=== PATIENT | female | born 1940 | race American Indian/Alaskan Native ===

== ENCOUNTER 2016-09-02 18:04 | Emergency (ER) | payer MEDICARE ==
[2016-09-02 19:12] VITALS: BP 154/61
--- NOTE | 2016-09-07 19:26 | ED Elopement Review ---
ED Pt Elopement review - Call Back decision Pt Call Back Decision: Pt to F/U with PMD
== END 2016-09-02 23:00 | disposition left against medical advice (07) ==
LOC: ED 18:04
DX: R21 Rash and other nonspecific skin eruption (principal); E11.9 Type 2 diabetes mellitus without complications; K21.9 Gastro-esophageal reflux disease without esophagitis; I10 Essential (primary) hypertension; Z88.6 Allergy status to analgesic agent; Z88.2 Allergy status to sulfonamides; Z53.21 Procedure and treatment not carried out due to patient leaving prior to being seen by health care provider

== ENCOUNTER 2017-02-15 21:20 | Inpatient (IN) | payer MEDICARE ==
[2017-02-15] MEDS ORDERED: NARCAN 2 MG/2 ML IV ONE (21:40)
[2017-02-15] MEDS ORDERED: APRESOLINE IV ONE (21:41)
--- NOTE | 2017-02-15 21:46 | Emergency Department Report ---
HPI - General Chief Complaint: Weakness Time Seen by Provider: 02/15/17 21:28 - HPI HPI: This is a 76 year-old female presents to the emergency department from home with complaint of fatigue, weakness and potentially altered mental status. The patient has a history of a fall about one month ago that caused her significant hip pain. She was having increased pain last night and went to [facility] where she was found not to have any type of significant injury and was discharged home with some pain medication. She got a dose of it last night and another one this morning. Since that time the patient was sleeping all day and even after that, when she woke up, she still has been lethargic. She is able to answer questions and is alert/ oriented but is very slow to answer questions and therefore is a poor historian but family is bedside filling in gaps. All of her medication was brought and except for the pain medication, but EMS allegedly says there was only one pill missing. She has a past history of hypertension, diabetes. Her primary care physician is a Dr. De Souza through [facility]. ED Past Medical Hx - Past Medical History Hx Hypertension: Yes Hx Diabetes: Yes Hx GERD: Yes Hx Arthritis: No Hx Asthma: No Hx COPD: No Hx HIV: No - Social History Smoking Status: Never Smoker Substance Use Type: None - Medications Home Medications: Home Medications Medication Instructions Recorded Confirmed Last Taken Type Calcitriol [Rocaltrol] 0.25 mcg PO QDAY 01/28/15 02/15/17 02/15/17 History Furosemide [Lasix] 40 mg PO QDAY 01/28/15 02/15/17 02/15/17 History Insulin Regular, Human [HumuLIN R] 10 unit SQ Q6HR 01/28/15 02/15/17 02/15/17 History Rosuvastatin (Nf) [Crestor] 10 mg PO QHS 01/28/15 02/15/17 02/15/17 History Clindamycin [Clindamycin CAP] 150 mg PO Q8HR 02/15/17 02/15/17 02/15/17 History Doxazosin [Cardura] 4 mg PO QDAY 02/15/17 02/15/17 02/15/17 History Estradiol Vaginal Cream (Nf) 1 applicator VG QHS 02/15/17 02/15/17 02/15/17 History [Estrace Vaginal Cream (Nf)] Labetalol [Normodyne TAB] 100 mg PO BID 02/15/17 02/15/17 02/15/17 History ED Review of Systems ROS: Stated complaint: N/V Other details as noted in HPI Comment: All other systems reviewed and negative Constitutional: malaise, weakness. denies: fever Eyes: denies: eye pain, eye discharge, vision change ENT: denies: ear pain, throat pain Respiratory: denies: cough, shortness of breath, wheezing Cardiovascular: denies: chest pain, palpitations Gastrointestinal: denies: abdominal pain, nausea, diarrhea Genitourinary: denies: urgency, dysuria, discharge Musculoskeletal: denies: back pain, joint swelling Skin: denies: rash, lesions Neurological: weakness. denies: headache Physical Exam - Physical Exam Vital Signs: Vital Signs 02/15/17 21:33 Temperature 98.3 F Pulse Rate 59 L Respiratory 15 Rate Blood Pressure 205/70 Blood Pressure 205/70 [Right] O2 Sat by Pulse 95 Oximetry Physical Exam: GENERAL: The patient is well-developed well-nourished. HENT: Normocephalic. Atraumatic. Patient has moist mucous membranes. EYES: Extraocular motions are intact. Pupils equal reactive to light bilaterally. No nystagmus but she is very slow with tracking. NECK: Supple. Trachea is midline. CHEST/LUNGS: Clear to auscultation. There is no respiratory distress noted. HEART/CARDIOVASCULAR: Regular. There is no tachycardia. There is no gallop rub or murmur. ABDOMEN: Abdomen is soft, nontender. Patient has normal bowel sounds. There is no abdominal distention. SKIN: Skin is warm and dry. NEURO: The patient is awake, alert, and oriented but she does appear very fatigued and slightly confused. She needs multiple redirection's or directions need to be repeated multiple times and she has slow to respond, but is able to do so. The patient is cooperative. No slurring of her speech. No pronator drift. No facial asymmetry. Withdraws from painful stimuli. MUSCULOSKELETAL: There is no tenderness or deformity. There is no evidence of acute injury. ED Course Vital Signs 02/15/17 21:33 Temperature 98.3 F Pulse Rate 59 L Respiratory 15 Rate Blood Pressure 205/70 Blood Pressure 205/70 [Right] O2 Sat by Pulse 95 Oximetry ED Medical Decision Making - Lab Data Result diagrams: 02/15/17 21:43 02/15/17 21:43 - EKG Data -: EKG Interpreted by Me EKG shows normal: sinus rhythm, axis (left axis deviation), intervals, QRS complexes (LVH), ST-T waves (Q-wave inversion to the lead 3) Rate: normal - EKG Data When compared to previous EKG there are: previous EKG unavailable Interpretation: other (sinus rhythm, left axis deviation, LVH, T-wave inversions in lead 3) - Radiology Data Radiology results: report reviewed EXAM: CT HEAD/BRAIN WO CON HISTORY: AMS TECHNIQUE: CT head without contrast PRIORS: None. FINDINGS: No acute intra-axial or extra-axial hemorrhage is identified. There is no evidence of midline shift or mass effect. The ventricles and sulci are within normal limits. Rick-white matter differentiation is intact. No acute parenchymal abnormalities seen. Bony calvarium is grossly intact. Visualized portions of the mastoids and paranasal sinuses are unremarkable. IMPRESSION: Negative CT head - Medical Decision Making 76-year-old female presents to the emergency department after she was found to be very fatigued and lethargic. The patient is arousable and able to answer questions appropriately but she is very slow to respond with a lag between question and answer and often must be redirected. EKG does not show any ST elevation [place]. CT of the head does not show any bleed, shift, mass or any acute process. Labs are mostly unremarkable except for some renal insufficiency but the patient does have some history of chronic kidney disease. She did not have a significant response to Narcan and allegedly only took one pain pill and it was about 12 hours prior to presentation. She appears slightly improved but still complains of dizziness. This could represent some type of atypical stroke or event. She has had recurrent falls over the past few days. For all these reasons she will be admitted to the hospital for further evaluation and has been accepted for admission by the hospitalist, Dr. Winchester. - Differential Diagnosis CVA, TIA, overdose, hypoglycemia Critical Care Time: No Critical care attestation.: If time is entered above; I have spent that time in minutes in the direct care of this critically ill patient, excluding procedure time. ED Disposition Clinical Impression: Weakness, Dizziness Altered mental status Qualifiers: Altered mental status type: unspecified Qualified Code(s): R41.82 - Altered mental status, unspecified Chronic kidney disease Qualifiers: Chronic kidney disease stage: unspecified stage Qualified Code(s): N18.9 - Chronic kidney disease, unspecified Disposition: 09 OP ADMIT IP TO THIS HOSP Is pt being admited?: Yes Condition: Stable Referrals: PRIMARY CARE, [Primary Care Provider] - 3-5 Days Time of Disposition: 01:29
[2017-02-15 21:58] LABS: Basophils % (Auto) 0.6 % (0.0-1.8); Hematocrit 32.9 % (30.3-42.9); Hemoglobin 10.6 gm/dl (10.1-14.3); Mean Corpuscular HGB Conc 32 % (30-34); Mean Corpuscular Hemoglobin 31 pg (28-32); Mean Corpuscular Volume 96 fl (79-97); Platelet Count 264 K/mm3 (140-440); Red Blood Count 3.42 M/mm3 (3.65-5.03); Red Cell Distribution Width 14.2 % (13.2-15.2); White Blood Count 7.8 K/mm3 (4.5-11.0)
[2017-02-15 22:21] LABS: Albumin 3.7 g/dL (3.9-5); Albumin/Globulin Ratio 0.9 %; BUN/Creatinine Ratio 16.81; Bilirubin,Total 0.3 mg/dL (0.1-1.2); Calcium 9.5 mg/dL (8.4-10.2); Chloride 97.9 mmol/L (98-107); Potassium 4.5 mmol/L (3.6-5.0); Total Protein 7.6 g/dL (6.3-8.2)
--- NOTE | 2017-02-15 22:24 | Cat Scan Report ---
FINAL REPORT EXAM: CT HEAD/BRAIN WO CON HISTORY: AMS TECHNIQUE: CT head without contrast PRIORS: None. FINDINGS: No acute intra-axial or extra-axial hemorrhage is identified. There is no evidence of midline shift or mass effect. The ventricles and sulci are within normal limits. Rick-white matter differentiation is intact. No acute parenchymal abnormalities seen. Bony calvarium is grossly intact. Visualized portions of the mastoids and paranasal sinuses are unremarkable. IMPRESSION: Negative CT head
[2017-02-15 23:38] LABS: Urine Drugs of Abuse Note Disclamer
[2017-02-15 23:51] LABS: Bilirubin,Urine NEG (Negative); Blood,Urine NEG (Negative); Ketones,Urine NEG (Negative); Leukocyte Esterase,Urine NEG (Negative); Nitrite,Urine NEG (Negative); RBC,Urine < 1.0 /HPF (0.0-6.0); Urobilinogen,Urine < 2.0 mg/dL (<2.0); WBC,Urine < 1.0 /HPF (0.0-6.0)
[2017-02-16] MEDS ORDERED: ZOFRAN IV PRN (02:33)
[2017-02-16] MEDS ORDERED: DULCOLAX PR PRN (02:33)
[2017-02-16] MEDS ORDERED: D50W (25GM) Syringe IV PRN ×2 (02:33→02:34)
[2017-02-16] MEDS ORDERED: MILK OF MAGNESIA PO PRN (02:33)
--- NOTE | 2017-02-16 02:35 | History and Physical Report ---
History of Present Illness Date of examination: 02/16/17 History of present illness: *6-year-old woman with a history of hypertension, diabetes, chronic kidney disease brought to the emergency room by family because of altered mental status. The patient sustained a fall yesterday, she went to [facility] silent, and she was given narcotics, discharge from the emergency room. Today she was noted to be confused, she sustained a fall today also. Spouse at bedside state that the patient mental status is improved but not back to baseline Review of systems difficult to obtain PAST MEDICAL HISTORY:hypertension, diabetes PAST SURGICAL HISTORY: None FAMILY HISTORY:hypertension SOCIAL HISTORY: Denies alcohol, tobacco, Medications and Allergies Allergies Allergy/AdvReac Type Severity Reaction Status Date / Time aspirin Allergy Rash Verified 08/22/14 16:22 Sulfa (Sulfonamide Allergy Rash Verified 08/22/14 16:22 Antibiotics) Home Medications Medication Instructions Recorded Confirmed Last Taken Type Calcitriol [Rocaltrol] 0.25 mcg PO QDAY 01/28/15 02/15/17 02/15/17 History Furosemide [Lasix] 40 mg PO QDAY 01/28/15 02/15/17 02/15/17 History Insulin Regular, Human [HumuLIN R] 10 unit SQ Q6HR 01/28/15 02/15/17 02/15/17 History Rosuvastatin (Nf) [Crestor] 10 mg PO QHS 01/28/15 02/15/17 02/15/17 History Clindamycin [Clindamycin CAP] 150 mg PO Q8HR 02/15/17 02/15/17 02/15/17 History Doxazosin [Cardura] 4 mg PO QDAY 02/15/17 02/15/17 02/15/17 History Estradiol Vaginal Cream (Nf) 1 applicator VG QHS 02/15/17 02/15/17 02/15/17 History [Estrace Vaginal Cream (Nf)] Labetalol [Normodyne TAB] 100 mg PO BID 02/15/17 02/15/17 02/15/17 History Active Meds: Active Medications Acetaminophen (Tylenol) 650 mg PO Q4H PRN PRN Reason: Pain MILD(1-3)/Fever >100.5/MADDEN Bisacodyl (Dulcolax) [address] QDAY PRN PRN Reason: Constipation unrelieved by MOM Dextrose (D50w (25gm) Syringe) 50 ml IV PRN PRN PRN Reason: Hypoglycemia Enoxaparin Sodium (Lovenox) 30 mg SUB-Q QDAY MARILYN Sodium Chloride (Nacl 0.45% 1000 Ml) 1,000 mls @ 75 mls/hr IV DIRECT MARILYN Magnesium Hydroxide (Milk Of Magnesia) 30 ml PO Q4H PRN PRN Reason: Constipation Ondansetron HCl (Zofran) 4 mg IV Q8H PRN PRN Reason: N/V unrelieved by Reglan Exam - Physical Exam Narrative exam: Gen. appearance: Patient lying in bed in no acute distress HEENT: Normocephalic/atraumatic, pupils equal round reactive to light, extra alkaline movement intact, no scleral icterus, no JVD or thyromegaly or nodule, neck is supple, mucous membrane moist, no erythema or exudate Heart: S1-S2, regular rate and rhythm Lungs: Clear to auscultation bilateral breathing comfortable Abdomen: Positive bowel sounds, nontender, nondistended, no organomegaly Extremities: No edema, cyanosis, clubbing Neuro:: Oriented 3 , cranial nerves II-12 intact, speech, motor intact Skin: No rash, nodules, warm dry - Constitutional Vitals: Temp Pulse Resp BP Pulse Ox 98.3 F 61 11 L 158/59 95 02/15/17 21:33 02/16/17 02:15 02/16/17 02:15 02/16/17 02:15 02/15/17 21:33 Results - Labs CBC & Chem 7: 02/15/17 21:43 02/15/17 21:43 Labs: Abnormal lab results 02/15/17 02/15/17 02/15/17 Range/Units 21:43 21:43 21:43 RBC 3.42 L (3.65-5.03) M/mm3 Seg Neutrophils % 76.4 H (40.0-70.0) % Chloride 97.9 L (98-107) mmol/L BUN 37 H (7-17) mg/dL Creatinine 2.2 H (0.7-1.2) mg/dL Glucose 252 H (65-100) mg/dL Albumin 3.7 L (3.9-5) g/dL Salicylates < 0.3 L (2.8-20.0) mg/dL - Imaging and Cardiology CT Scan - head: report reviewed Assessment and Plan Assessment Acute encephalopathy secondary to narcotics Hypertension Diabetes Chronic kidney disease Plan Admit to medicine Vincent narcotics, mental status improving Continue to monitor, check fingersticks and initiate insulin sided scale Continue appropriate outpatient medications DVT prophylaxis
[2017-02-16] MEDS: NACL 0.45% 1000 ML 1,000 ML IV SCH (04:13)
[2017-02-16] MEDS: NOVOLOG SUB-Q SCH ×4 (08:23→22:53)
--- NOTE | 2017-02-16 09:44 | Event Note ---
Date: 02/16/17 Patient seen and examined. Admitted this a.m. with altered mental status likely from narcotics. We'll continue current management and plan as dictated in H&P.
[2017-02-16] MEDS: LOVENOX SUB-Q SCH (10:54)
[2017-02-16] MEDS: TYLENOL PO PRN (10:55)
[2017-02-16] MEDS: ROCALTROL PO SCH (12:37)
[2017-02-16] MEDS ORDERED: NORMODYNE PO SCH (22:00)
[2017-02-16] MEDS ORDERED: LEVEMIR SUB-Q SCH (22:00)
[2017-02-16] MEDS ORDERED: NON-FORMULARY (Rosuvastatin (Nf) 10 MG) PO SCH (22:00)
[2017-02-16] MEDS ORDERED: NON-FORMULARY (Insulin Glargine,Hum.Rec.Anlog [Lantus Solostar] 20 UNIT) SQ SCH (22:00)
[2017-02-16] MEDS: NORMODYNE PO SCH (22:39)
[2017-02-17] MEDS: TYLENOL PO PRN ×2 (01:17→21:16)
[2017-02-17 06:26] LABS: Basophils % (Auto) 0.5 % (0.0-1.8); Hematocrit 34.7 % (30.3-42.9); Hemoglobin 11.2 gm/dl (10.1-14.3); Mean Corpuscular HGB Conc 32 % (30-34); Mean Corpuscular Hemoglobin 31 pg (28-32); Mean Corpuscular Volume 96 fl (79-97); Platelet Count 305 K/mm3 (140-440); Red Cell Distribution Width 14.6 % (13.2-15.2); White Blood Count 6.6 K/mm3 (4.5-11.0)
[2017-02-17 06:41] LABS: BUN/Creatinine Ratio 16.5; Calcium 9.6 mg/dL (8.4-10.2); Chloride 100.6 mmol/L (98-107); Potassium 4.7 mmol/L (3.6-5.0)
[2017-02-17] MEDS: LOVENOX SUB-Q SCH (09:21)
[2017-02-17] MEDS: ROCALTROL PO SCH (09:21)
[2017-02-17] MEDS: NORMODYNE PO SCH ×2 (09:22→21:07)
[2017-02-17] MEDS: NOVOLOG SUB-Q SCH ×4 (09:22→21:17)
--- NOTE | 2017-02-17 09:29 | Progress Note ---
Assessment and Plan Assessment and plan: Acute encephalopathy secondary to narcotics Resloved Hold narcotics Patient currently alert and oriented to person,place,time and situation. Normal CT of the head no acute intracranial process. Hypertension Continue to hold Lasix for now and we will resume once patient improved. IV hydralazine for SBP >160 Closely monitor blood pressure Diabetes Mellitus Accu-Chek meals and at bedtime Sliding scale insulin/novlong Chronic kidney disease Creatinine 2.0 which is patient's baseline Gently IV fluid Closely monitor DVT prophylaxis Lovenox History Interval history: Patient alert and oriented to person,place, time and situation Hospitalist Physical - Constitutional Vitals: Temp Pulse Resp BP Pulse Ox 98.1 F 65 18 155/57 98 02/17/17 08:00 02/17/17 09:22 02/16/17 22:00 02/17/17 09:22 02/16/17 22:00 General appearance: Present: no acute distress - EENT Eyes: Present: PERRL ENT: hearing intact - Neck Neck: Present: supple - Respiratory Respiratory effort: normal Respiratory: bilateral: CTA - Cardiovascular Rhythm: regular Heart Sounds: Present: S1 & S2 Peripheral Pulses: within normal limits - Abdominal General gastrointestinal: soft, non-tender - Integumentary Integumentary: Present: clear, warm, dry - Psychiatric Psychiatric: appropriate mood/affect - Neurologic Neurologic: CNII-XII intact - Allied Health Allied health notes reviewed: nursing Results - Labs CBC & Chem 7: 02/17/17 05:54 02/17/17 05:54 Labs: Laboratory Last Values WBC 6.6 K/mm3 (4.5-11.0) 02/17/17 05:54 RBC 3.60 M/mm3 (3.65-5.03) L 02/17/17 05:54 Hgb 11.2 gm/dl (10.1-14.3) 02/17/17 05:54 Hct 34.7 % (30.3-42.9) 02/17/17 05:54 MCV 96 fl (79-97) 02/17/17 05:54 MCH 31 pg (28-32) 02/17/17 05:54 MCHC 32 % (30-34) 02/17/17 05:54 RDW 14.6 % (13.2-15.2) 02/17/17 05:54 Plt Count 305 K/mm3 (140-440) 02/17/17 05:54 Lymph % (Auto) 20.5 % (13.4-35.0) 02/17/17 05:54 [place] % (Auto) 8.9 % (0.0-7.3) H 02/17/17 05:54 Eos % (Auto) 2.0 % (0.0-4.3) 02/17/17 05:54 Baso % (Auto) 0.5 % (0.0-1.8) 02/17/17 05:54 Lymph # 1.4 K/mm3 (1.2-5.4) 02/17/17 05:54 [place] # 0.6 K/mm3 (0.0-0.8) 02/17/17 05:54 Eos # 0.1 K/mm3 (0.0-0.4) 02/17/17 05:54 Baso # 0.0 K/mm3 (0.0-0.1) 02/17/17 05:54 Seg Neutrophils % 68.1 % (40.0-70.0) 02/17/17 05:54 Seg Neutrophils # 4.5 K/mm3 (1.8-7.7) 02/17/17 05:54 Sodium 142 mmol/L (137-145) 02/17/17 05:54 Potassium 4.7 mmol/L (3.6-5.0) 02/17/17 05:54 Chloride 100.6 mmol/L (98-107) 02/17/17 05:54 Carbon Dioxide 29 mmol/L (22-30) 02/17/17 05:54 Anion Gap 17 mmol/L 02/17/17 05:54 BUN 33 mg/dL (7-17) H 02/17/17 05:54 Creatinine 2.0 mg/dL (0.7-1.2) H 02/17/17 05:54 Estimated GFR 29 ml/min 02/17/17 05:54 BUN/Creatinine Ratio 16.50 % 02/17/17 05:54 Glucose 143 mg/dL (65-100) H 02/17/17 05:54 POC Glucose 186 (70-105) H 02/17/17 07:48 Calcium 9.6 mg/dL (8.4-10.2) 02/17/17 05:54 Total Bilirubin 0.30 mg/dL (0.1-1.2) 02/15/17 21:43 AST 22 units/L (5-40) 02/15/17 21:43 ALT 13 units/L (7-56) 02/15/17 21:43 Alkaline Phosphatase 59 units/L (35-129) 02/15/17 21:43 Troponin T 0.020 ng/mL (0.00-0.029) 02/15/17 21:43 Total Protein 7.6 g/dL (6.3-8.2) 02/15/17 21:43 Albumin 3.7 g/dL (3.9-5) L 02/15/17 21:43 Albumin/Globulin Ratio 0.9 % 02/15/17 21:43 TSH 2.480 mlU/mL (0.270-4.200) 02/15/17 21:43 Urine Color Straw (Yellow) 02/15/17 23:38 Urine Turbidity Clear (Clear) 02/15/17 23:38 Urine pH 6.0 (5.0-7.0) 02/15/17 23:38 Ur Specific Orange 1.010 (1.003-1.030) 02/15/17 23:38 Urine Protein 30 mg/dl mg/dL (Negative) 02/15/17 23:38 Urine Glucose (UA) 150 mg/dL (Negative) 02/15/17 23:38 Urine Ketones Neg mg/dL (Negative) 02/15/17 23:38 Urine Blood Neg (Negative) 02/15/17 23:38 Urine Nitrite Neg (Negative) 02/15/17 23:38 Urine Bilirubin Neg (Negative) 02/15/17 23:38 Urine Urobilinogen < 2.0 mg/dL (<2.0) 02/15/17 23:38 Ur Leukocyte Esterase Neg (Negative) 02/15/17 23:38 Urine WBC (Auto) < 1.0 /HPF (0.0-6.0) 02/15/17 23:38 Urine RBC (Auto) < 1.0 /HPF (0.0-6.0) 02/15/17 23:38 U Epithel Cells (Auto) < 1.0 /HPF (0-13.0) 02/15/17 23:38 Salicylates < 0.3 mg/dL (2.8-20.0) L 02/15/17 21:43 Urine Opiates Screen Presumptive positive 02/15/17 23:30 Urine Methadone Screen Presumptive negative 02/15/17 23:30 Acetaminophen < 15.0 ug/mL (10.0-30.0) 02/15/17 21:43 Ur Barbiturates Screen Presumptive negative 02/15/17 23:30 Ur Phencyclidine Scrn Presumptive negative 02/15/17 23:30 Ur Amphetamines Screen Presumptive negative 02/15/17 23:30 U Benzodiazepines Scrn Presumptive negative 02/15/17 23:30 Urine Cocaine Screen Presumptive negative 02/15/17 23:30 U Marijuana (THC) Screen Presumptive negative 02/15/17 23:30 Drugs of Abuse Note Disclamer 02/15/17 23:30
[2017-02-17] MEDS ORDERED: CARDURA PO SCH (10:00)
[2017-02-17] MEDS: NACL 0.45% 1000 ML 1,000 ML IV SCH (21:22)
[2017-02-17] MEDS ORDERED: LEVEMIR SUB-Q SCH (22:00)
[2017-02-18] MEDS: NOVOLOG SUB-Q SCH ×3 (06:49→17:34)
[2017-02-18] MEDS: TYLENOL PO PRN (07:46)
[2017-02-18] MEDS: LOVENOX SUB-Q SCH (09:09)
[2017-02-18] MEDS: ROCALTROL PO SCH (09:10)
[2017-02-18] MEDS: NORMODYNE PO SCH (09:14)
[2017-02-18] MEDS ORDERED: APRESOLINE PO SCH (14:00)
--- NOTE | 2017-02-18 14:18 | Discharge Summary ---
Providers - Providers Date of Admission: 02/16/17 02:33 Date of discharge: 02/18/17 Attending physician: MT RO 02/16/17 11:35 Physical Therapy Evaluation and Treat [CONS] Routine Comment: Reason For Exam: falls Primary care physician: LEGAL SERVICES MANAGER Hospitalization Reason for admission: acute encephalopathy Condition: Stable Hospital course: Patient is a 76 year-old female presents to the emergency department from home with complaint of fatigue, weakness and potentially altered mental status.The patient has a history of a fall about one month ago that caused her significant hip pain.Patient was diagnosed wit acute encephalopathy, hypertension, diabetes mellitus and chronic kidney disease. CT of the head no acute intracranial process. Xray WNL. Patient presented with altered mental status most likely secondary over dose of narcotics. We hold her narcotics and diuretic .She was treated with antihypertensive and insulin. Patient currently alert oriented to person, place, time and situation. Patient is clinically improved. Patient advised to follow-up with his primary care provider. Discharged Diagnosed Acute encephalopathy secondary to narcotics Hypertension Diabetes Mellitus Chronic kidney disease Disposition: DC- TO HOME OR SELFCARE Time spent for discharge: 33 minutes Core Measure Documentation - Palliative Care Palliative Care/ Comfort Measures: Not Applicable - Core Measures Any of the following diagnoses?: none Exam - Constitutional Vitals: Temp Pulse Resp BP Pulse Ox 99 F 58 L 16 127/45 97 02/18/17 08:00 02/18/17 13:19 02/18/17 10:00 02/18/17 13:19 02/18/17 13:05 General appearance: Present: no acute distress - EENT Eyes: Present: PERRL ENT: hearing intact - Neck Neck: Present: supple - Respiratory Respiratory effort: normal Respiratory: bilateral: CTA - Cardiovascular Rhythm: regular Heart Sounds: Present: S1 & S2 - Extremities Extremities: no ischemia Extremity abnormal: edema (to lower extremity) Peripheral Pulses: within normal limits - Abdominal General gastrointestinal: Present: soft, non-tender Female genitourinary: Present: deferred - Rectal Rectal Exam: deferred - Integumentary Integumentary: Present: clear, warm, dry - Musculoskeletal Musculoskeletal: strength equal bilaterally - Psychiatric Psychiatric: appropriate mood/affect - Neurologic Neurologic: CNII-XII intact - Allied Health Allied health notes reviewed: nursing Plan Activity: fall precautions Weight Bearing Status: Weight Bear as Tolerated Diet: low fat, low cholesterol, low salt Follow up with: PRIMARY CARE,MD [Primary Care Provider] - 3-5 Days Prescriptions: Insulin Detemir [Levemir] 30 units SUB-Q QHS 30 Days hydrALAZINE [Apresoline TAB] 10 mg PO Q8HR #30 tablet
[2017-02-18 14:42] VITALS: BP 142/61
== END 2017-02-18 17:40 | disposition home or self-care (01) | DRG 917 ==
LOC: ED 21:20 → CC2 02-16 02:33
PROVIDERS: ADMIT Internal Medicine; ATTEND Internal Medicine
DX: T40.601A Poisoning by unspecified narcotics, accidental (unintentional), initial encounter (principal); G92 Toxic encephalopathy; N18.9 Chronic kidney disease, unspecified; K21.9 Gastro-esophageal reflux disease without esophagitis; I12.9 Hypertensive chronic kidney disease with stage 1 through stage 4 chronic kidney disease, or unspecified chronic kidney disease; E11.22 Type 2 diabetes mellitus with diabetic chronic kidney disease; Z82.49 Family history of ischemic heart disease and other diseases of the circulatory system; Z88.6 Allergy status to analgesic agent; Z88.2 Allergy status to sulfonamides; Z79.4 Long term (current) use of insulin; Z79.899 Other long term (current) drug therapy; Y92.89 Other specified places as the place of occurrence of the external cause
CPT/HCPCS: 36415; 70450; 80048; 80053; 80307; 80320; 81001; 82962; 84443; 84484; 85025; 93005; 93010; 96374; 96375; A9270-GY; G0480; G8978-GP; G8979-GP; J0360; J1650; J1815; J1818; J2310